=== PATIENT | female | born 1950 | race Caucasian/White ===

== ENCOUNTER 2020-11-11 14:37 | Emergency (ER) | payer MEDICARE ==
[~2020-11-11] VITALS: Ht 154.9 cm; Wt 60.6 kg
[2020-11-11] MEDS ORDERED: LEVO112T2 PO (14:53)
[2020-11-11] MEDS ORDERED: METO1TAB32 PO (14:53)
[2020-11-11] MEDS ORDERED: PARO10TA3 PO (14:53)
[2020-11-11 16:29] LABS: BASO % 0.4 % (0.0-1.0); EOS # 0.2 10^3/uL (0.0-0.5); EOS % 2.5 % (0.0-3.0); HEMATOCRIT 38.5 % (36.0-47.0); HEMOGLOBIN 12.6 g/dl (12.0-15.5); LYMPH # 1.8 10^3/uL (1.5-5.0); LYMPH % 22.1 % (24.0-44.0); MEAN CORPUSCULAR HEMOGLOBIN 27.6 pg (27.0-33.0); MEAN CORPUSCULAR HGB CONC 32.7 g/dl (32.0-36.5); MEAN CORPUSCULAR VOLUME 84.2 fl (80.0-96.0); MONO # 0.5 10^3/uL (0.0-0.8); MONO % 6.3 % (2.0-8.0); NEUTROPHILS # 5.6 10^3/uL (1.5-8.5); NEUTROPHILS % 68.3 % (36.0-66.0); PLATELET COUNT, AUTOMATED 225 10^3/uL (150-450); RED BLOOD COUNT 4.57 10^6/uL (4.00-5.40); WHITE BLOOD COUNT 8.3 10^3/uL (4.0-10.0)
[2020-11-11 16:58] LABS: BLOOD UREA NITROGEN 25 MG/DL (7-18); CALCIUM LEVEL 10.3 MG/DL (8.8-10.2); CARBON DIOXIDE LEVEL 29 MEQ/L (21-32); CHLORIDE LEVEL 106 MEQ/L (98-107); CREATININE FOR GFR 0.65 MG/DL (0.55-1.30); FREE T4 1.35 NG/DL (0.76-1.46); GLOMERULAR FILTRATION RATE > 60.0 (>39); GLUCOSE, FASTING 93 MG/DL (70-100); POTASSIUM SERUM 4.2 MEQ/L (3.5-5.1); SODIUM LEVEL 142 MEQ/L (136-145); THYROID STIMULATING HORMONE 0.525 uIU/ML (0.358-3.740)
--- NOTE | 2020-11-11 17:04 | REP ---
INDICATION: palpitations. COMPARISON: None. TECHNIQUE: AP portable seated, somewhat lordotic. FINDINGS: The lungs are well inflated. CP angle sharply defined without definite effusion. No lateral pleural thickening or apical scar. No consolidation. No parenchymal mass or pulmonary nodule. Heart not grossly enlarged. The aorta is normal for age. Airway intact. There is no vascular redistribution or pulmonary edema. Degenerative changes in the spine and shoulders. No free air under the diaphragm. IMPRESSION: 1. No acute cardiopulmonary change. <Electronically signed by Ray Otero > 11/11/20 [id number]
[2020-11-11 17:38] LABS: CK-MB VALUE MASS < 1.0 NG/ML (<3.6); CPK CREATINE PHOSPHOKINASE 66 U/L (26-192); MB/CK RELATIVE INDEX 1.52 (< OR =4); TROPONIN I 0.07 NG/ML (< 0.10)
[2020-11-11 18:15] VITALS: BP 142/80
--- NOTE | 2020-11-13 07:23 | ECGEPIP ---
[facility] - ED Test Date: 2020-11-11 Pat Name: ROBINA RAMÍREZ Department: Room: - Gender: Female [employer]: : 1950 Requested By: Jose M Nuñez Order Number: [id number] Reading MD: Jose M Pacheco Measurements Intervals [place] Rate: 64 P: 50 MA: 138 QRS: -13 QRSD: 78 T: 11 QT: 392 QTc: 404 Interpretive Statements Normal sinus rhythm Anterior infarct , age undetermined NONSPECIFIC T WAVE ABNORMALITY(S) NO PRIORS FOR COMPARISON Electronically Signed on 11-13-2020 7:22:54 EDT by Jose M Pacheco
== END 2020-11-11 18:41 | disposition home or self-care (01) ==
LOC: M ED 14:37
DX: R00.2 Palpitations (principal); R42 Dizziness and giddiness; I10 Essential (primary) hypertension; F32.9 Major depressive disorder, single episode, unspecified; I47.1 Supraventricular tachycardia; Z87.891 Personal history of nicotine dependence; Z88.0 Allergy status to penicillin; Z88.2 Allergy status to sulfonamides

== ENCOUNTER 2023-11-09 17:06 | Emergency (ER) | payer MEDICARE ==
[~2023-11-09] VITALS: Ht 152.4 cm; Wt 60.5 kg
[~2023-11-09 17:06] MED LIST: LEVO112T2 PO; METO1TAB32 PO; PARO10TA3 PO
[2023-11-09] MEDS: KETOROLAC 30 MG/ML 1ML VIAL IM ONE (19:12)
[2023-11-09] MEDS ORDERED: NAPR-837 PO (20:19)
[2023-11-09] MEDS ORDERED: METH-1164 PO (20:20)
[2023-11-09] MEDS ORDERED: [UNRECOGNIZED DRUG - CODE] TP (20:22)
[2023-11-09] MEDS: methocarbamoL 500 MG TAB PO ONE (20:42)
[2023-11-09] MEDS: LIDOCAINE 5% (LIDODERM) PATCH TD ONE (20:42)
[2023-11-09 21:00] VITALS: BP 172/77; TEMP 97.2; O2SAT 99
== END 2023-11-09 21:28 | disposition home or self-care (01) ==
LOC: EDBD 17:06 → M ED 17:06
DX: S70.01XA Contusion of right hip, initial encounter (principal); S30.0XXA Contusion of lower back and pelvis, initial encounter; M16.11 Unilateral primary osteoarthritis, right hip; W10.8XXA Fall (on) (from) other stairs and steps, initial encounter; Y92.009 Unspecified place in unspecified non-institutional (private) residence as the place of occurrence of the external cause; Y93.89 Activity, other specified; Y99.9 Unspecified external cause status; I47.10 Supraventricular tachycardia, unspecified; E05.00 Thyrotoxicosis with diffuse goiter without thyrotoxic crisis or storm; H91.90 Unspecified hearing loss, unspecified ear; Z88.0 Allergy status to penicillin; Z88.2 Allergy status to sulfonamides
CPT/HCPCS: 72110; 73502; 96372; 99284; J1885